=== PATIENT | female | born 1945 | race Caucasian/White ===

== ENCOUNTER 2016-11-12 06:10 | Observation (INO) | payer MEDICARE, OTHER ==
[2016-11-04 13:11] LABS: BASOPHILS 0.3 %; BASOPHILS ABSOLUTE 0.02 10/3/uL (0.0-0.16); EOSINOPHILS ABSOLUTE 0.14 10/3/uL (0.0-0.53); HEMATOCRIT 45.3 % (36.0-48.0); HEMOGLOBIN 15.1 g/dL (12.0-16.0); IMMATURE GRANULOCYTES 0.1 %; IMMATURE GRANULOCYTES ABSOLUTE 0.01 10/3/uL (0.0-0.11); LYMPHOCYTES 31.4 %; LYMPHOCYTES ABSOLUTE 2.15 10/3/uL (0.67-4.30); MEAN CORPUS HGB CONC 33.3 g/dL (32.0-36.0); MEAN CORPUSCULAR HEMOGLOB 28.3 pg (26.0-34.0); MEAN PLATELET VOLUME 11.1 fL (9.2-13.0); MONOCYTES ABSOLUTE 0.75 10/3/uL (0.21-1.20); NEUTROPHILS 55.2 %; NEUTROPHILS ABSOLUTE 3.77 10/3/uL (2.02-8.40); PLATELET COUNT 281 10/3/uL (150-400); RBC DISTRIBUTION WIDTH 13.5 % (12.0-16.0); RED CELL COUNT 5.33 10/6/uL (4.0-5.6); WHITE BLOOD CELLS 6.8 10/3/uL (4.5-10.5)
[2016-11-04 13:12] LABS: MANUAL DIFF NO %
[2016-11-04 13:27] LABS: A/G RATIO 1.2 (0.7-1.9); ALBUMIN 3.7 G/DL (3.5-5.0); ALKALINE PHOSPHATASE 67 U/L (45-117); BUN (BLOOD UREA NITROGEN) 17 MG/DL (6-23); CALCIUM, SERUM 9.5 MG/DL (8.5-10.4); CHLORIDE, SERUM 102 MMOL/L (96-112); CO2 (CARBON DIOXIDE) 32 MMOL/L (24-34); CREATININE 0.98 MG/DL (0.55-1.02); GFR AFRICAN AMERICAN 68 ML/MIN (>=60); GFR NON AFRICAN AMERICAN 58 ML/MIN (>=60); GLOBULIN 3.2 G/DL (2.5-4.1); GLUCOSE, SERUM 81 MG/DL (60-99); POTASSIUM, SERUM 4.4 MMOL/L (3.5-5.3); SGOT(AST) 18 U/L (5-40); SGPT(ALT) 18 U/L (5-65); SODIUM, SERUM 141 MMOL/L (135-148); TOTAL BILIRUBIN 0.9 MG/DL (0-1.2); TOTAL PROTEIN 6.9 G/DL (6.0-8.5)
--- NOTE | ~2016-11-12 | OP ---
Record Of Operation [facility] [address] [place]. [address] NAME: LEATHA EDMONDS : 47 STATUS : ADM IN [facility]#: [id number] AGE: 71 ADM/REG DATE : 11/12/16 MR#: [id number] REPORT SERV DATE: 11/12/16 DICTATED BY: YADIEL DELEON III DATE: 11/12/16 REPORT STATUS : Draft TRANSCRIBED BY: MODL DATE: 11/12/16 DATE OF PROCEDURE: 11/12/2016 PREOPERATIVE DIAGNOSIS: Symptomatic incisional hernia. POSTOPERATIVE DIAGNOSIS: Symptomatic incisional hernia. PROCEDURE: Open repair of symptomatic incisional hernia. SURGEON: Yadiel Deleon M.D. ANESTHESIA: General with intubation. COMPLICATIONS: None. ESTIMATED BLOOD LOSS: Less than 5 mL. SPECIMENS: None. DRAINS: None. LAP AND SPONGE COUNT: Correct x3. BRIEF HISTORY: This 71-year-old female presented with a symptomatic bulge or incisional hernia over her right lateral abdominal wall. This is related to a previous right lateral abdominal wall incision which had been performed for a right colectomy. It was felt that repair of this was indicated. This procedure, the risks, benefits, and alternatives, including but not limited to the risk for bleeding, infection, enterotomy, injury to any abdominal structure, postop small bowel obstruction, ileus, seroma formation, hematoma formation, recurrence of the hernia, and unforeseen complications including deep venous thrombosis, pulmonary embolus, myocardial infarction, stroke, pneumonia, and were fully and completely explained to the patient prior to the surgery. The patient is moderately obese with a large overhanging panniculus and the fact that she would be at increased risk for recurrence of the hernia was explained. The patient had questions, which were answered. She understood the risks and agreed to the surgery as planned. DESCRIPTION OF PROCEDURE: After being properly identified and after discussing the risks of surgery with her again in the preoperative area, and after identifying the hernia in the preoperative area, the patient was taken to the operating room and placed in supine position on the operating room table. General anesthesia was administered, and she was intubated without difficulty. The abdomen was prepped and draped sterilely in usual fashion. After an appropriate "time-out" per JCAHO standards, a vertical incision was made directly over the previous incision over the right lateral abdominal wall, over the hernia. The incision was continued through subcutaneous tissue. Hemostasis was controlled with cautery. The incision was continued down to the fascia. The external oblique fascia was very thin and attenuated. This did not appear to be a complete hernia and the posterior fascia was Record Of Operation [facility] [address] [place]. [address] NAME: LEATHA EDMONDS : 47 STATUS : ADM IN PAT#: [id number] AGE: 71 ADM/REG DATE : 11/12/16 MR#: [id number] REPORT SERV DATE: 11/12/16 DICTATED BY: YADIEL DELEON III DATE: 11/12/16 REPORT STATUS : Draft TRANSCRIBED BY: FERNANDA DATE: 11/12/16 intact. The skin and subcutaneous tissue around the entire periphery of the bulge was mobilized for several centimeters so as to fully define the area. The internal oblique fascia and posterior fascia were intact, but the external oblique fascia was very loose and thin and attenuated. This was consistent with an eventration rather than actual full thickness incisional hernia. We elected to reapproximate the external oblique fascia where it was thin and attenuated. This was done with interrupted #1 Prolene sutures in a [id number] type fashion. This resulted in good reapproximation of the external oblique fascia. Great care was taken not to penetrate through the entire thickness of the abdominal wall. This came together nicely with no tension. It was felt that mesh repair was not indicated. The area was irrigated copiously with saline. Hemostasis was assured. The subcutaneous tissue was closed with a running 3-0 chromic suture. The skin was closed with a running subcuticular 4-0 Monocryl stitch. Dressings were applied. Anesthesia was reversed. The patient was taken to the recovery room in stable condition. She tolerated the procedure well. Her family was informed the results of the surgery. The patient will remain in the hospital for postoperative care. JAYDA/FERNANDA Yadiel Deleon III, M.D. / [id number] CC: Sade Vazquez III, Jr., M.D.
--- NOTE | ~2016-11-12 | HP ---
History And Physical [place] [id number] [facility] [place]. [address] NAME: LEATHA EDMONDS : 47 STATUS : PRE IN PAT#: [id number] AGE: 71 ADM/REG DATE : MR#: [id number] REPORT SERV DATE: 11/12/16 DICTATED BY: YADIEL DELEON III DATE: 10/18/16 REPORT STATUS : Draft TRANSCRIBED BY: MODL DATE: 10/18/16 DATE OF ADMISSION: 11/12/2016 HISTORY OF PRESENT ILLNESS: This 71-year-old female, who comes to operating room for repair of a large symptomatic incisional hernia. The patient has a large incisional hernia over her right lateral abdominal wall. The hernia is related to a previous colon resection. The hernia has become larger with time and symptomatic in terms of local pain and discomfort. The patient states that, the hernia is interfering with her daily life. She has had no nausea, vomiting, or obstructive symptoms. She comes to the operating room now for open repair of this hernia. The patient is extremely obese and she has been strongly advised that there is a high risk for recurrence of the hernia, and also increased risk for complications due to her obesity. She understands, but wishes to proceed with surgery as planned. PAST MEDICAL HISTORY: History of right colon cancer, status post laparoscopic right colectomy in January of 2016, history of deep venous thrombosis. ALLERGIES: ZITHROMAX, SULFA, AND CELIO. MEDICATIONS: Omeprazole, stool softener, Darya. FAMILY HISTORY: Positive for diabetes, heart disease, and cancer. SOCIAL HISTORY: No history of tobacco use. The patient does have a history of alcohol use. REVIEW OF SYSTEMS: The patient's 14-point review of systems otherwise unremarkable except for anxiety. OBJECTIVE/PHYSICAL EXAMINATION: GENERAL: This is a very obese female, in no acute distress. He is alert and oriented x3. The patient is very obese on exam. VITAL SIGNS: Blood pressure 135/80, temperature 97.2, pulse 88. HEENT: Unremarkable. NEURO: Cranial nerves II to XII are normal. LUNGS: Clear. HEART: Normal. ABDOMEN: Obese and protuberant. She has a large incisional hernia over the right lateral abdominal wall which is chronically incarcerated. EXTREMITIES: Normal. ASSESSMENT: A 71-year-old female with extremely large, symptomatic chronically incarcerated umbilical hernia. 1. Obesity. 2. History of colon cancer, status post right colectomy, with no evidence for recurrent disease. 3. History of deep venous thrombosis. History And Physical [address] [id number] [facility] [place]. [address] NAME: LEATHA EDMONDS : 47 STATUS : PRE IN PAT#: [id number] AGE: 71 ADM/REG DATE : MR#: [id number] REPORT SERV DATE: 11/12/16 DICTATED BY: YADIEL DELEON III DATE: 10/18/16 REPORT STATUS : Draft TRANSCRIBED BY: FERNANDA DATE: 10/18/16 PLAN: The patient comes in now for open repair of this large incisional hernia. This procedure, the risks, benefits, and alternatives, including but not limited to the risk for bleeding, infection, enterotomy, injury to abdominal structure, postop small bowel obstruction, ileus, recurrence of the hernia, seroma formation, hematoma formation, need for use of mesh, risk of infection from mesh or enterocutaneous fistula requiring removal of mesh and unforeseen complications including deep venous thrombosis, pulmonary embolus, myocardial infarction, stroke, pneumonia, , have been fully and completely explained to the patient in length prior to surgery. The fact that this is a major operation with risk for major debridement has been explained. The expected length recovery has been explained. The patient's questions have been answered. She clearly understands the risks and agrees to surgery as planned. The fact that she has increased risk for recurrence of the hernia has also been explained. The option of nonoperative management has been offered to the patient, but declined. Again, she understands the risks and agrees to surgery as planned. JAYDA/FERNANDA Yadiel Deleon III, M.D. / [id number]
[~2016-11-12 06:10] MED LIST: ALEVE220 MG PO; ALLEGRA180 PO; ATV1 PO; HAIR PO; PCET PO; PRILOSEC40 MG PO; SKIN PO; VITA PO; [UNRECOGNIZED DRUG - OTHER] PO
[2016-11-13] MEDS ORDERED: PERCOCET 7.5/321 TAB PO (08:34)
== END 2016-11-13 09:55 | disposition home or self-care (01) ==
LOC: SDC/OF 06:10 → PACU 08:05 → 5SO 12:44
PROVIDERS: Surgery
PROC: 0WQF0ZZ Repair Abdominal Wall, Open Approach (ICD-10-PCS; principal; 2016-11-12 06:45)
DX: K43.0 Incisional hernia with obstruction, without gangrene (principal); E66.9 Obesity, unspecified; F41.0 Panic disorder [episodic paroxysmal anxiety]; F41.9 Anxiety disorder, unspecified; F32.9 Major depressive disorder, single episode, unspecified; Z98.890 Other specified postprocedural states; Z88.2 Allergy status to sulfonamides; Z88.8 Allergy status to other drugs, medicaments and biological substances; Z79.899 Other long term (current) drug therapy; Z88.0 Allergy status to penicillin; Z90.49 Acquired absence of other specified parts of digestive tract; Z90.710 Acquired absence of both cervix and uterus; Z98.51 Tubal ligation status; Z80.0 Family history of malignant neoplasm of digestive organs
CPT/HCPCS: 71020; 80053; 85025; 87641; 93005; A9270-GY; G0378; J0690; J2250; J2270; J2405; J2550; J2710; J3010

== ENCOUNTER 2016-12-30 05:49 | Observation (INO) | payer MEDICARE, OTHER ==
[2016-12-25 13:23] LABS: BASOPHILS 0.1 %; BASOPHILS ABSOLUTE 0.01 10/3/uL (0.0-0.16); EOSINOPHILS 1.5 %; EOSINOPHILS ABSOLUTE 0.12 10/3/uL (0.0-0.53); HEMATOCRIT 46.1 % (36.0-48.0); HEMOGLOBIN 15.3 g/dL (12.0-16.0); IMMATURE GRANULOCYTES 0.1 %; IMMATURE GRANULOCYTES ABSOLUTE 0.01 10/3/uL (0.0-0.11); LYMPHOCYTES 21.7 %; LYMPHOCYTES ABSOLUTE 1.73 10/3/uL (0.67-4.30); MEAN CORPUS HGB CONC 33.2 g/dL (32.0-36.0); MEAN CORPUSCULAR HEMOGLOB 28.7 pg (26.0-34.0); MEAN CORPUSCULAR VOLUME 86.5 fL (80-100); MEAN PLATELET VOLUME 11.5 fL (9.2-13.0); MONOCYTES 6.4 %; MONOCYTES ABSOLUTE 0.51 10/3/uL (0.21-1.20); NEUTROPHILS 70.2 %; NEUTROPHILS ABSOLUTE 5.59 10/3/uL (2.02-8.40); PLATELET COUNT 273 10/3/uL (150-400); RBC DISTRIBUTION WIDTH 13.6 % (12.0-16.0); RED CELL COUNT 5.33 10/6/uL (4.0-5.6)
[2016-12-25 13:24] LABS: MANUAL DIFF NO %
[2016-12-25 13:48] LABS: A/G RATIO 1.2 (0.7-1.9); ALBUMIN 4.1 G/DL (3.5-5.0); BUN (BLOOD UREA NITROGEN) 19 MG/DL (6-23); CALCIUM, SERUM 8.8 MG/DL (8.5-10.4); CHLORIDE, SERUM 106 MMOL/L (96-112); CO2 (CARBON DIOXIDE) 30 MMOL/L (24-34); CREATININE 0.76 MG/DL (0.55-1.02); GFR AFRICAN AMERICAN 92 ML/MIN (>=60); GFR NON AFRICAN AMERICAN 79 ML/MIN (>=60); GLOBULIN 3.3 G/DL (2.5-4.1); GLUCOSE, SERUM 95 MG/DL (60-99); POTASSIUM, SERUM 4.1 MMOL/L (3.5-5.3); SGOT(AST) 19 U/L (5-40); SGPT(ALT) 23 U/L (5-65); SODIUM, SERUM 143 MMOL/L (135-148); TOTAL PROTEIN 7.4 G/DL (6.0-8.5)
[2016-12-25 13:49] LABS: ALKALINE PHOSPHATASE 85 U/L (45-117); TOTAL BILIRUBIN 0.4 MG/DL (0-1.2)
--- NOTE | ~2016-12-30 | HP ---
History And Physical [address] [place]. [address] NAME: LEATHA EDMONDS : 47 STATUS : DIS [place] PAT#: [id number] AGE: 72 ADM/REG DATE : 12/30/16 MR#: [id number] REPORT SERV DATE: 03/03/17 DICTATED BY: YADIEL DELEON III DATE: 03/03/17 REPORT STATUS : Draft TRANSCRIBED BY: FERNANDA DATE: 03/03/17 DATE OF ADMISSION: 12/30/2016 HISTORY OF PRESENT ILLNESS: This 71-year-old female comes to the operating room for repair of a symptomatic recurrent hernia. The patient has a hernia over her right lateral abdominal wall. This is related to a previous laparoscopic right colectomy. She comes to the operating room now for laparoscopic repair of this hernia, possible laparotomy. PAST MEDICAL HISTORY: See previously dictated history and physical. PHYSICAL EXAMINATION: Please see previously dictated history and physical. ASSESSMENT: A 71-year-old female with symptomatic recurrent incisional hernia. PLAN: The patient comes to the operating room now for laparoscopic repair of this hernia, possible laparotomy. In this procedure, the risks, benefits, and alternatives including, but not limited to the risk for bleeding, infection, enterotomy, injury to abdominal structure, postop small bowel obstruction, ileus, recurrence of the hernia, seroma formation, hematoma formation, infection of mesh or enterocutaneous fistula requiring removal of the mesh, and unforeseen complications including deep venous thrombosis, pulmonary embolus, myocardial infarction, stroke, pneumonia, and , have been fully and completely explained to the patient at length prior to surgery. The possible need for laparotomy has been explained. The fact that this is a major operation with risk for major morbidity and mortality was explained. The patient's questions have been answered. She understands the risks and agrees to surgery as planned. JAYDA/FERNANDA Yadiel Deleon III, M.D. / [id number] CC: Sade Vazquez III, Jr., M.D.
--- NOTE | ~2016-12-30 | OP ---
Record Of Operation [facility] [address] [place]. [address] NAME: LEATHA EDMONDS : 47 STATUS : ADM [place] PAT#: [id number] AGE: 71 ADM/REG DATE : 12/30/16 MR#: [id number] REPORT SERV DATE: 12/31/16 DICTATED BY: YADIEL DELEON III DATE: 12/30/16 REPORT STATUS : Draft TRANSCRIBED BY: MODL DATE: 12/30/16 DATE OF PROCEDURE: 12/30/2016 PREOPERATIVE DIAGNOSIS: Recurrent symptomatic incisional hernia. POSTOPERATIVE DIAGNOSIS: Recurrent symptomatic incisional hernia. PROCEDURE: Laparoscopic repair of recurrent incisional hernia with Prolene mesh. SURGEON: Yadiel Deleon M.D. ANESTHESIA: General with intubation. COMPLICATIONS: None. ESTIMATED BLOOD LOSS: Less than 5 mL. SPECIMENS: None. DRAINS: None. LAP AND SPONGE COUNT: Correct x3. BRIEF HISTORY: This 71-year-old female presented with a recurrent symptomatic hernia. This is located over the right lateral abdominal wall and was related to a previous laparoscopic right colectomy. It was felt that laparoscopic repair of the hernia, possible laparotomy, was indicated. This procedure, the risks, benefits, and alternatives, including not limited to the risk for bleeding, infection, enterotomy, injury to any abdominal structure, postop small bowel obstruction, ileus, seroma formation, hematoma formation, recurrence of the hernia, infection of the mesh, or enterocutaneous fistula requiring removal of the mesh, and unforeseen complications including deep venous thrombosis, pulmonary embolus, myocardial infarction, stroke, pneumonia, and , were fully and completely explained to the patient and family prior to surgery. The fact that this was a major operation with risk for major morbidity and mortality was explained. The expected length of recovery was explained. The patient and family had questions which were answered. They understood the risks and agreed to surgery as planned. DESCRIPTION OF PROCEDURE: After being properly identified and after discussing risks of surgery with the patient and family again in the preoperative area, and after identifying the hernia with her in the preoperative area, the patient was taken to the operating room and placed in the supine position on the operating room table. General anesthesia was administered. She was intubated without difficulty. A Rivas catheter was inserted. The abdomen was prepped and draped sterilely in the usual fashion. After an appropriate "time- out" per JCO standards, a small transverse incision was made just below the umbilicus. The skin and fascia on either side of this were elevated with towel clips. A Veress needle was placed through the incision into the peritoneal cavity. Correct position of the needle Record Of Operation [facility] [address] [place]. [address] NAME: LEATHA EDMONDS : 47 STATUS : ADM [place] PAT#: [id number] AGE: 71 ADM/REG DATE : 12/30/16 MR#: [id number] REPORT SERV DATE: 12/31/16 DICTATED BY: YADIEL DELEON III DATE: 12/30/16 REPORT STATUS : Draft TRANSCRIBED BY: FERNANDA DATE: 12/30/16 in the peritoneal cavity was confirmed by the hanging drop test. The abdominal cavity was then insufflated to about 13 mmHg with carbon dioxide. Correct position of air in the peritoneal cavity was confirmed by palpation. The Veress needle was removed and replaced with a 10-mm trocar. The laparoscope was placed through this. A 5 mm trocar was then placed in the midline, just below the xiphoid process, under direct vision of the laparoscope. Another 5 mm trocar was placed in the midline, midway between the umbilicus and xiphoid process. Finally, a 5 mm trocar was placed in the right lower quadrant, also under direct vision of the laparoscope. The patient was rotated slightly to her left. There were some adhesions between the omentum and the underside of the abdominal wall in the right lower quadrant where the hernia was located. Using sharp dissection, these adhesions were carefully divided. The fascial defect was identified along the right lateral abdominal wall. This was a fairly large defect. There was some omentum incarcerated within this. Using careful retraction, the omentum was reduced back in the abdominal cavity. The adhesions between the omentum and the hernia sac were carefully divided. In this way, the edges of the fascial defect were clearly defined. We then selected a large Ventralight lightweight Prolene patch. The sutures were placed, using 0 Prolene suture, in each quadrant of the mesh. The mesh was then rolled and placed through the 10 mm trocar into the abdominal cavity, after placing a 5 mm laparoscope through one of the 5 mm trocar sites. The mesh was then opened and placed beneath the fascial defect. Using a laparoscopic needle, each of the Prolene sutures was pulled up through the abdominal wall so as to position the mesh correctly over the defect. The mesh was positioned so as to overlap the edges of the defect by 2-3 cm on all sides. Each of the Prolene suture was then tied to the fascia. Using an Endo Tacker, the edges of the mesh was then secured around the defect. Upon completion of this, the mesh lay nicely behind the defect. It was not twisted or kinked in any way. It was not under any tension and overlapped the edges of the defect generously. Hemostasis was assured in all areas. Each of the trocars were then removed under direct vision of the laparoscope to assure hemostasis. The air was removed from the peritoneal cavity. The fascia of the infraumbilical incision was closed with 0 Vicryl suture. The skin incisions were closed with running subcuticular 4-0 Monocryl stitches. Dressings were applied. Anesthesia was reversed. The patient was taken to the recovery room in stable condition. She tolerated the procedure well. Her family was informed of the results of surgery. The patient will remain in the hospital for postoperative care. JAYDA/FERNANDA Yadiel Deleon III, M.D. / [id number] CC: Record Of Operation [address] [address] NAME: LEATHA EDMONDS : 47 STATUS : ADM [place] PAT#: [id number] AGE: 71 ADM/REG DATE : 12/30/16 MR#: [id number] REPORT SERV DATE: 12/31/16 DICTATED BY: YADIEL DELEON III DATE: 12/30/16 REPORT STATUS : Draft TRANSCRIBED BY: FERNANDA DATE: 12/30/16 Yadiel Deleon III, M.D.
[~2016-12-30 05:49] MED LIST changes: +PERCOCET 7.5/321 TAB PO
[2016-12-31 06:59] LABS: BASOPHILS 0.1 %; BASOPHILS ABSOLUTE 0.01 10/3/uL (0.0-0.16); EOSINOPHILS 0.4 %; EOSINOPHILS ABSOLUTE 0.05 10/3/uL (0.0-0.53); HEMOGLOBIN 13.3 g/dL (12.0-16.0); IMMATURE GRANULOCYTES 0.2 %; IMMATURE GRANULOCYTES ABSOLUTE 0.03 10/3/uL (0.0-0.11); LYMPHOCYTES 8.3 %; LYMPHOCYTES ABSOLUTE 1.08 10/3/uL (0.67-4.30); MEAN CORPUS HGB CONC 33.7 g/dL (32.0-36.0); MEAN CORPUSCULAR HEMOGLOB 28.9 pg (26.0-34.0); MEAN CORPUSCULAR VOLUME 85.9 fL (80-100); MONOCYTES 7.2 %; MONOCYTES ABSOLUTE 0.93 10/3/uL (0.21-1.20); NEUTROPHILS 83.8 %; PLATELET COUNT 240 10/3/uL (150-400)
[2016-12-31 07:01] LABS: HEMATOCRIT 39.5 % (36.0-48.0); MANUAL DIFF NO %
[2016-12-31 07:11] LABS: BUN (BLOOD UREA NITROGEN) 13 MG/DL (6-23); CALCIUM, SERUM 8.1 MG/DL (8.5-10.4); CHLORIDE, SERUM 104 MMOL/L (96-112); CO2 (CARBON DIOXIDE) 27 MMOL/L (24-34); CREATININE 0.77 MG/DL (0.55-1.02); GFR AFRICAN AMERICAN 91 ML/MIN (>=60); GFR NON AFRICAN AMERICAN 78 ML/MIN (>=60); GLUCOSE, SERUM 133 MG/DL (60-99); SODIUM, SERUM 141 MMOL/L (135-148)
[2016-12-31] MEDS ORDERED: ULTRAM50 PO (08:30)
[2016-12-31] MEDS ORDERED: ATV1 PO (08:31)
== END 2016-12-31 11:23 | disposition home or self-care (01) ==
LOC: SDC 05:49 → SDC/OF 09:06 → 5SO 09:56
PROVIDERS: Surgery
PROC: 0WUF4JZ Supplement Abdominal Wall with Synthetic Substitute, Percutaneous Endoscopic Approach (ICD-10-PCS; principal; 2016-12-30 06:45)
DX: K43.0 Incisional hernia with obstruction, without gangrene (principal); M19.90 Unspecified osteoarthritis, unspecified site; K21.9 Gastro-esophageal reflux disease without esophagitis; F41.0 Panic disorder [episodic paroxysmal anxiety]; Z88.0 Allergy status to penicillin; Z88.2 Allergy status to sulfonamides; Z88.8 Allergy status to other drugs, medicaments and biological substances; Z88.1 Allergy status to other antibiotic agents; Z79.899 Other long term (current) drug therapy; Z98.51 Tubal ligation status; Z98.890 Other specified postprocedural states; Z90.49 Acquired absence of other specified parts of digestive tract
CPT/HCPCS: 80048; 80053; 85025; 87641; 93005; 96374; 96375; 96376; A9270-GY; C1713; C1781; G0378; J0690; J1885; J2250; J2270; J2405; J2710; J3010